=== PATIENT | female | born 1995 ===

== ENCOUNTER 2017-10-12 01:29 | Emergency (ER) | payer OTHER ==
[2017-10-12 01:29] VITALS: BMI 26.9
[2017-10-12 01:52] VITALS: RESP 18; TEMP 98.5
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
[2017-10-12 03:11] VITALS: BP 110/71; PULSE 90
[2017-10-12 03:58] VITALS: O2SAT 100
== END 2017-10-12 03:00 | disposition home or self-care (01) ==
LOC: C.ER 01:29
DX: S00.03XA Contusion of scalp, initial encounter (principal); S60.419A Abrasion of unspecified finger, initial encounter; Y04.0XXA Assault by unarmed brawl or fight, initial encounter